=== PATIENT | female | born 1990 | race American Indian/Alaskan Native ===

== ENCOUNTER 2017-12-19 23:37 | Outpatient (CLI) | payer OTHER | END 2017-12-20 03:00 | disposition home or self-care (01) | LOC: TRG 23:37 | PROVIDERS: ATTEND Obstetrics & Gynecology | DX: O47.03 False labor before 37 completed weeks of gestation, third trimester (principal); O99.333 Smoking (tobacco) complicating pregnancy, third trimester; Z3A.30 30 weeks gestation of pregnancy; Z88.1 Allergy status to other antibiotic agents ==